=== PATIENT | male | born 1990 | race Caucasian/White ===

== ENCOUNTER 2023-07-26 14:24 | Outpatient (OUT) | payer BC, SELFPAY ==
--- NOTE | 2023-07-26 15:01 | ECG_ITS ---
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
== END 2023-07-26 14:25 | disposition home or self-care (01) ==
LOC: PST 14:25
PROVIDERS: PCP Family Medicine; Visit Provider Surgery
DX: Z01.810 Encounter for preprocedural cardiovascular examination (principal); R59.1 Generalized enlarged lymph nodes
CPT/HCPCS: 93005

== ENCOUNTER 2023-08-01 07:10 | Day surgery (SDC) | payer BC, SELFPAY ==
[2023-07-26 15:04] VITALS: BP 140/82; PULSE 85; TEMP 36.3; O2SAT 98; BMI 33.1
[2023-08-01] VITALS (10 sets, daily range): BP systolic 98–146; BP diastolic 64–98; PULSE 71–85; TEMP 36.2–36.6; O2SAT 91–97; BMI 33.1
--- OUTSIDE RECORDS SUMMARY | 2023-08-01 07:13 | XMS_ITS | CCD ---
Author Organization [facility] Care Team Providers Care Digital Photographic Printer Name Role Phone WIL VAZQUEZ Admitting Unavailable WIL VAZQUEZ Attending Unavailable WIL VAZQUEZ Consulting Unavailable WIL VAZQUEZ Attending Unavailable WIL VAZQUEZ Consulting Unavailable WIL VAZQUEZ Admitting Unavailable MISC, DR VALERA Attending Unavailable MISC, DR VALERA Consulting Unavailable MISC, DR VALERA Admitting Unavailable Swapna Stephens Unavailable CUTLER SÁNCHEZ L Attending Unavailable CUTLER, SÁNCHEZ L Attending Unavailable CUTLER, SÁNCHEZ L Referring Unavailable CUTLER, SÁNCHEZ L Attending Unavailable CUTLER, SÁNCHEZ L Referring Unavailable CUTLER, SÁNCHEZ L Referring Unavailable CUTLER, SÁNCHEZ L Referring Unavailable BENNY DICKENS Attending Unavailable CUTLER, SÁNCHEZ L Referring Unavailable [place], DO Sánchez L Primary Care Provider [phone] MD Tatyana Waters Attending Provider Tatyana Waters Attending Unavailabl e Tatyana Waters Admitting Unavailabl e [place], Sánchez L Primary Care Unavailable Medications Current Medications Medication Drug Class(es) Dates Sig (Normalized) Sig (Original) acetaminophen 325 mg oral capsule (1 source) Start: 07-26-19 24 take 1 capsule by mouth every six hours Acetaminophen (Tylenol) 325 mg capsule Active 325 MG PO Every 6 hours July 26, 2023 12:00am Citalopram (1 source) Serotonin Reuptake Inhibitor Citalopram Hydrobromide Active doxycycline monohydrate 100 mg oral tablet (1 source) Tetracycline-class Drug Start: 02-15-20 22 take 1 tablet by mouth every twelve hours Doxycycline Monohydrate 100 MG 1 tablet Orally Twice a day for 7 days Jan, Active methylPREDNISolone 4 mg oral tablet (1 source) Corticosteroid Start: 02-15-20 methylPREDNISolone 4 MG as directed Orally Once a day for 6 days Jan, Active Naproxen (1 source) Nonsteroidal Anti-inflammatory Drug Naproxen Active Omeprazole (1 source) Proton Pump Inhibitor Omeprazole Active Phentermine (1 source) Sympathomimetic Amine Anorectic Adipex-P Active Problems Active Problems Problem Classification Problem Date Documented Da te Episodic/Chronic Headache; including migraine (2 sources) Bilateral headache; Translations: [Bilateral headache] 07-26-2023 Episodic Lymphadenitis (3 sources) Generalized enlarged lymph nodes; Translations: [Generalized enlarged lymph nodes] Onset: 07-26-2023 07-26-2023 Episodic Other gastrointestinal disorders (1 source) Splenomegaly; Translations: [Splenomegaly, not elsewhere classified] 07-26-2023 Episodic Other gastrointestinal disorders (1 source) Splenomegaly, not elsewhere classified; Translations: [Splenomegaly] 07-26-2023 Episodic Other liver diseases (2 sources) Fatty (change of) liver, not elsewhere classified; Translations: [Nonalcoholic fatty liver disease] 07-26-2023 Chronic Other nutritional; endocrine; and metabolic disorders (1 source) Abnormal weight loss; Translations: [Abnormal weight loss] 07-26-2023 Episodic Other nutritional; endocrine; and metabolic disorders (1 source) Abnormal weight loss; Translations: [Loss of weight] 07-26-2023 Episodic Other skin disorders (1 source) Night sweats; Translations: [Generalized hyperhidrosis] 07-26-2023 Episodic Other skin disorders (1 source) Generalized hyperhidrosis; Translations: [Generalized hyperhidrosis] 07-26-2023 Episodic Poisoning by nonmedicinal substances (1 source) Toxic effect of venom of bees, undetermined, initial encounter Episodic Unclassified (3 sources) CONTACT W/AND (SUSP) EXPOS COVID-19; Translations: [CONTACT W/AND (SUSP) EXPOS COVID-19] Onset: 01-11-2021 Past or Other Problems Problem Classification Problem Date Documented Da te Episodic/Chronic Immunizations and screening for infectious disease (4 sources) Encounter for immunization; Translations: [ENCOUNTER FOR IMMUNIZATION] Onset: 07-30-2020 Episodic Unclassified (1 source) CONTACT W/AND (SUSP) EXPOS COVID-19; Translations: [CONTACT W/AND (SUSP) EXPOS COVID-19] Onset: 01-05-2021 Results Test Name Value Interpretation Reference Range Facility MARY Antinuclear Antibodieson 07-26-2023 Antinuclear Abs, IFA Negative Normal . [facility] Comment on above: Result Comment: Nega tive <1:80 Borderline 1:80 Positive >1:80 ICAP nomenclature: [id number] For more information about Hep-2 cell patterns use ANApatterns.org, the official website for the International Consensus on Antinuclear Antibody (MARY) Patterns (ICAP). Performed at: - [facility] [id number] Director Employee Safety And Health: Caesar Chery PhD, Phone: [phone] Performed By: #### I GM, IGG, HIV SCREEN, HBCAB, RPR W RFX, HEPACUTE, RA, ROYAL, LYME AB wRFX, HBSAB, MARY #### [facility] , #### FLOW NEOGENOMIC, HSCRP, FISH NOT BLAD, ESR, CMP, CBC #### [facility] [address] Angiotensin Converting Enzym ange 07-26-2023 Angiotensin converting enzyme [Catalytic activity/Vol] 37 U/L Normal 14-82 [facility] Comment on above: Performed By: #### I GM, IGG, HIV SCREEN, HBCAB, RPR W RFX, HEPACUTE, RA, ROYAL, LYME AB wRFX, HBSAB, MARY #### [facility] , #### FLOW NEOGENOMIC, HSCRP, FISH NOT BLAD, ESR, CMP, CBC #### [facility] [address] Complete Blood Count Auto Di ffon 07-26-2023 Basophils (Bld) [#/Vol] 0.1 10*3/uL Normal 0.0-0.2 [facility] Comment on above: Performed By: #### I GM, IGG, HIV SCREEN, HBCAB, RPR W RFX, HEPACUTE, RA, ROYAL, LYME AB wRFX, HBSAB, MARY #### [facility] , #### FLOW NEOGENOMIC, HSCRP, FISH NOT BLAD, ESR, CMP, CBC #### [facility] [address] Basophils/100 WBC (Bld) 0.8 % Normal . [facility] Comment on above: Performed By: #### I GM, IGG, HIV SCREEN, HBCAB, RPR W RFX, HEPACUTE, RA, ROYAL, LYME AB wRFX, HBSAB, MARY #### [facility] , #### FLOW NEOGENOMIC, HSCRP, FISH NOT BLAD, ESR, CMP, CBC #### [facility] [address] Eosinophils (Bld) [#/Vol] 0.2 10*3/uL Normal 0.0-0.45 [facility] Comment on above: Performed By: #### I GM, IGG, HIV SCREEN, HBCAB, RPR W RFX, HEPACUTE, RA, ROYAL, LYME AB wRFX, HBSAB, MARY #### [facility] , #### FLOW NEOGENOMIC, HSCRP, FISH NOT BLAD, ESR, CMP, CBC #### [address] Eosinophils/100 WBC (Bld) 3.2 % Normal . [facility] Comment on above: Performed By: #### I GM, IGG, HIV SCREEN, HBCAB, RPR W RFX, HEPACUTE, RA, ROYAL, LYME AB wRFX, HBSAB, MARY #### [facility] , #### FLOW NEOGENOMIC, HSCRP, FISH NOT BLAD, ESR, CMP, CBC #### [facility] [address] Erythrocyte distribution width (RBC) [Ratio] 14.2 % Normal 12.0-14.8 [facility] Comment on above: Performed By: #### I GM, IGG, HIV SCREEN, HBCAB, RPR W RFX, HEPACUTE, RA, ROYAL, LYME AB wRFX, HBSAB, MARY #### [facility] , #### FLOW NEOGENOMIC, HSCRP, FISH NOT BLAD, ESR, CMP, CBC #### [facility] [address] Hematocrit (Bld) [Volume fraction] 44.1 % Normal 38.8-50.0 [facility] Comment on above: Performed By: #### I GM, IGG, HIV SCREEN, HBCAB, RPR W RFX, HEPACUTE, RA, ROYLA, LYME AB wRFX, HBSAB, MARY #### [facility] , #### FLOW NEOGENOMIC, HSCRP, FISH NOT BLAD, ESR, CMP, CBC #### [address] Hemoglobin (Bld) [Mass/Vol] 15.0 g/dL Normal 13.0-17.0 [facility] Comment on above: Performed By: #### I GM, IGG, HIV SCREEN, HBCAB, RPR W RFX, HEPACUTE, RA, ROYAL, LYME AB wRFX, HBSAB, MARY #### [facility] , #### FLOW NEOGENOMIC, HSCRP, FISH NOT BLAD, ESR, CMP, CBC #### [address] Lymphocytes (Bld) [#/Vol] 1.7 10*3/uL Normal 1.00-4.8 [facility] Comment on above: Performed By: #### I GM, IGG, HIV SCREEN, HBCAB, RPR W RFX, HEPACUTE, RA, ROYAL, LYME AB wRFX, HBSAB, MARY #### [facility] , #### FLOW NEOGENOMIC, HSCRP, FISH NOT BLAD, ESR, CMP, CBC #### [address] Lymphocytes/100 WBC (Bld) 27.4 % Normal . [facility] Comment on above: Performed By: #### I GM, IGG, HIV SCREEN, HBCAB, RPR W RFX, HEPACUTE, RA, ROYAL, LYME AB wRFX, HBSAB, MARY #### [facility] , #### FLOW NEOGENOMIC, HSCRP, FISH NOT BLAD, ESR, CMP, CBC #### [facility] [address] MCH (RBC) [Entitic mass] 29.5 pg Normal 27.5-35.2 [facility] Comment on above: Performed By: #### I GM, IGG, HIV SCREEN, HBCAB, RPR W RFX, HEPACUTE, RA, ROYAL, LYME AB wRFX, HBSAB, MARY #### [facility] , #### FLOW NEOGENOMIC, HSCRP, FISH NOT BLAD, ESR, CMP, CBC #### [facility] [address] MCV (RBC) [Entitic vol] 86.9 fL Normal 83.5-101 [facility] Comment on above: Performed By: #### I GM, IGG, HIV SCREEN, HBCAB, RPR W RFX, HEPACUTE, RA, ROYAL, LYME AB wRFX, HBSAB, MARY #### [facility] , #### FLOW NEOGENOMIC, HSCRP, FISH NOT BLAD, ESR, CMP, CBC #### [facility] [address] Mean Corpuscular HGB Conc 34.0 g/dL Normal 32.5-35.6 [facility] Comment on above: Performed By: #### I GM, IGG, HIV SCREEN, HBCAB, RPR W RFX, HEPACUTE, RA, ROYAL, LYME AB wRFX, HBSAB, MARY #### [facility] , #### FLOW NEOGENOMIC, HSCRP, FISH NOT BLAD, ESR, CMP, CBC #### [facility] [address] Monocytes (Bld) [#/Vol] 0.7 10*3/uL Normal 0.0-0.8 [facility] Comment on above: Performed By: #### I GM, IGG, HIV SCREEN, HBCAB, RPR W RFX, HEPACUTE, RA, ROYAL, LYME AB wRFX, HBSAB, MARY #### [facility] , #### FLOW NEOGENOMIC, HSCRP, FISH NOT BLAD, ESR, CMP, CBC #### [facility] [address] Monocytes/100 WBC (Bld) 10.8 % Normal . [facility] Comment on above: Performed By: #### I GM, IGG, HIV SCREEN, HBCAB, RPR W RFX, HEPACUTE, RA, ROYAL, LYME AB wRFX, HBSAB, MARY #### [facility] , #### FLOW NEOGENOMIC, HSCRP, FISH NOT BLAD, ESR, CMP, CBC #### [address] Neutrophils (Bld) [#/Vol] 3.7 10*3/uL Normal 1.8-7.7 [facility] Comment on above: Performed By: #### I GM, IGG, HIV SCREEN, HBCAB, RPR W RFX, HEPACUTE, RA, ROYAL, LYME AB wRFX, HBSAB, MARY #### [facility] , #### FLOW NEOGENOMIC, HSCRP, FISH NOT BLAD, ESR, CMP, CBC #### [place] [address] [place] Neutrophils/100 WBC (Bld) 57.8 % Normal . [facility] Comment on above: Performed By: #### I GM, IGG, HIV SCREEN, HBCAB, RPR W RFX, HEPACUTE, RA, ROYAL, LYME AB wRFX, HBSAB, MARY #### [facility] , #### FLOW NEOGENOMIC, HSCRP, FISH NOT BLAD, ESR, CMP, CBC #### [place] [address] [place] NRBC% 0.3 /100{WBC} Normal 0-0.5 [facility] Comment on above: Performed By: #### I GM, IGG, HIV SCREEN, HBCAB, RPR W RFX, HEPACUTE, RA, ROYAL, LYME AB wRFX, HBSAB, MARY #### [facility] , #### FLOW NEOGENOMIC, HSCRP, FISH NOT BLAD, ESR, CMP, CBC #### [facility] [address] Platelet mean volume (Bld) [Entitic vol] 8.0 fL Normal 6.6-10.1 [facility] Comment on above: Performed By: #### I GM, IGG, HIV SCREEN, HBCAB, RPR W RFX, HEPACUTE, RA, ROYAL, LYME AB wRFX, HBSAB, MARY #### [facility] , #### FLOW NEOGENOMIC, HSCRP, FISH NOT BLAD, ESR, CMP, CBC #### [address] Platelets (Bld) [#/Vol] 209 10*3/uL Normal 150-450 [facility] Comment on above: Performed By: #### I GM, IGG, HIV SCREEN, HBCAB, RPR W RFX, HEPACUTE, RA, ROYAL, LYME AB wRFX, HBSAB, MARY #### [facility] , #### FLOW NEOGENOMIC, HSCRP, FISH NOT BLAD, ESR, CMP, CBC #### [address] RBC (Bld) [#/Vol] 5.08 10*6/uL Normal 3.90-5.60 [facility] Comment on above: Performed By: #### I GM, IGG, HIV SCREEN, HBCAB, RPR W RFX, HEPACUTE, RA, ROYAL, LYME AB wRFX, HBSAB, MARY #### [facility] , #### FLOW NEOGENOMIC, HSCRP, FISH NOT BLAD, ESR, CMP, CBC #### [address] WBC (Bld) [#/Vol] 6.4 10*3/uL Normal 4.1-10.5 [facility] Comment on above: Performed By: #### I GM, IGG, HIV SCREEN, HBCAB, RPR W RFX, HEPACUTE, RA, ROYAL, LYME AB wRFX, HBSAB, MARY #### [facility] , #### FLOW NEOGENOMIC, HSCRP, FISH NOT BLAD, ESR, CMP, CBC #### [address] Comprehensive Metabolic Pane phill 07-26-2023 Albumin [Mass/Vol] 4.4 g/dL Normal 3.5-5.7 [facility] Comment on above: Performed By: #### I GM, IGG, HIV SCREEN, HBCAB, RPR W RFX, HEPACUTE, RA, ROYAL, LYME AB wRFX, HBSAB, MARY #### [facility] , #### FLOW NEOGENOMIC, HSCRP, FISH NOT BLAD, ESR, CMP, CBC #### [address] Albumin/Globulin [Mass ratio] 1.7 {ratio} Normal [facility] Comment on above: Performed By: #### I GM, IGG, HIV SCREEN, HBCAB, RPR W RFX, HEPACUTE, RA, ROYAL, LYME AB wRFX, HBSAB, MARY #### [facility] , #### FLOW NEOGENOMIC, HSCRP, FISH NOT BLAD, ESR, CMP, CBC #### [address] ALP [Catalytic activity/Vol] 61 U/L Normal 34-104 [facility] Comment on above: Performed By: #### I GM, IGG, HIV SCREEN, HBCAB, RPR W RFX, HEPACUTE, RA, ROYAL, LYME AB wRFX, HBSAB, MARY #### [facility] , #### FLOW NEOGENOMIC, HSCRP, FISH NOT BLAD, ESR, CMP, CBC #### [address] ALT [Catalytic activity/Vol] 19 U/L Normal 7-52 [facility] Comment on above: Performed By: #### I GM, IGG, HIV SCREEN, HBCAB, RPR W RFX, HEPACUTE, RA, ROYAL, LYME AB wRFX, HBSAB, MARY #### [facility] , #### FLOW NEOGENOMIC, HSCRP, FISH NOT BLAD, ESR, CMP, CBC #### [address] Anion gap [Moles/Vol] 10.9 mmol/L Normal 6.0-15.0 [facility] Comment on above: Performed By: #### I GM, IGG, HIV SCREEN, HBCAB, RPR W RFX, HEPACUTE, RA, ROYAL, LYME AB wRFX, HBSAB, MARY #### [facility] , #### FLOW NEOGENOMIC, HSCRP, FISH NOT BLAD, ESR, CMP, CBC #### [address] AST [Catalytic activity/Vol] 15 U/L Normal 13-39 [facility] Comment on above: Performed By: #### I GM, IGG, HIV SCREEN, HBCAB, RPR W RFX, HEPACUTE, RA, ROYAL, LYME AB wRFX, HBSAB, MARY #### [facility] , #### FLOW NEOGENOMIC, HSCRP, FISH NOT BLAD, ESR, CMP, CBC #### [address] Bilirubin [Mass/Vol] 0.4 mg/dL Normal 0.3-1.0 [facility] Comment on above: Performed By: #### I GM, IGG, HIV SCREEN, HBCAB, RPR W RFX, HEPACUTE, RA, ROYAL, LYME AB wRFX, HBSAB, MARY #### [facility] , #### FLOW NEOGENOMIC, HSCRP, FISH NOT BLAD, ESR, CMP, CBC #### [address] Calcium [Mass/Vol] 9.3 mg/dL Normal 8.6-10.3 [facility] Comment on above: Performed By: #### I GM, IGG, HIV SCREEN, HBCAB, RPR W RFX, HEPACUTE, RA, ROYAL, LYME AB wRFX, HBSAB, MARY #### [facility] , #### FLOW NEOGENOMIC, HSCRP, FISH NOT BLAD, ESR, CMP, CBC #### [facility] [address] Chloride [Moles/Vol] 103 mmol/L Normal 98-107 [facility] Comment on above: Performed By: #### I GM, IGG, HIV SCREEN, HBCAB, RPR W RFX, HEPACUTE, RA, ROYAL, LYME AB wRFX, HBSAB, MARY #### [facility] , #### FLOW NEOGENOMIC, HSCRP, FISH NOT BLAD, ESR, CMP, CBC #### [address] CO2 [Moles/Vol] 29.3 mmol/L Normal 21.0-31.0 [facility] Comment on above: Performed By: #### I GM, IGG, HIV SCREEN, HBCAB, RPR W RFX, HEPACUTE, RA, ROYAL, LYME AB wRFX, HBSAB, MARY #### [facility] , #### FLOW NEOGENOMIC, HSCRP, FISH NOT BLAD, ESR, CMP, CBC #### [address] Creatinine [Mass/Vol] 0.83 mg/dL Normal 0.70-1.30 [facility] Comment on above: Performed By: #### I GM, IGG, HIV SCREEN, HBCAB, RPR W RFX, HEPACUTE, RA, ROYAL, LYME AB wRFX, HBSAB, MARY #### [facility] , #### FLOW NEOGENOMIC, HSCRP, FISH NOT BLAD, ESR, CMP, CBC #### [address] Creatinine Clr Calc Pharmacy 155.77 Normal [facility] Comment on above: Result Comment: PERF ORMED BY: [place] [address] PATHOLOGIST DIRECTOR CORRECTIONAL AGENCY PACO DENISE M.D. Performed By: #### I GM, IGG, HIV SCREEN, HBCAB, RPR W RFX, HEPACUTE, RA, ROYAL, LYME AB wRFX, HBSAB, MARY #### [facility] , #### FLOW NEOGENOMIC, HSCRP, FISH NOT BLAD, ESR, CMP, CBC #### [address] GFR/1.73 sq M.predicted MDRD (S/P/Bld) [Vol rate/Area] mL/min/{1.73_m2} Normal [facility] Comment on above: Performed By: #### I GM, IGG, HIV SCREEN, HBCAB, RPR W RFX, HEPACUTE, RA, ROYAL, LYME AB wRFX, HBSAB, MARY #### [facility] , #### FLOW NEOGENOMIC, HSCRP, FISH NOT BLAD, ESR, CMP, CBC #### [address] Globulin (S) [Mass/Vol] 2.6 g/dL Normal [facility] Comment on above: Performed By: #### I GM, IGG, HIV SCREEN, HBCAB, RPR W RFX, HEPACUTE, RA, ROYAL, LYME AB wRFX, HBSAB, MARY #### [facility] , #### FLOW NEOGENOMIC, HSCRP, FISH NOT BLAD, ESR, CMP, CBC #### [address] Glucose [Mass/Vol] 88 mg/dL Normal 70-100 [facility] Comment on above: Result Comment: [facility] Glucose Reference Range is dependent on time and content of last meal. Glucose of more than 200 mg/dL in a nonstressed, ambulatory subject supports the diagnosis of Diabetes Mellitus. ADA recommended reference range Performed By: #### I GM, IGG, HIV SCREEN, HBCAB, RPR W RFX, HEPACUTE, RA, ROYAL, LYME AB wRFX, HBSAB, MARY #### [facility] , #### FLOW NEOGENOMIC, HSCRP, FISH NOT BLAD, ESR, CMP, CBC #### [facility] [address] Potassium [Moles/Vol] 4.2 mmol/L Normal 3.5-5.1 [facility] Comment on above: Performed By: #### I GM, IGG, HIV SCREEN, HBCAB, RPR W RFX, HEPACUTE, RA, ROYAL, LYME AB wRFX, HBSAB, MARY #### [facility] , #### FLOW NEOGENOMIC, HSCRP, FISH NOT BLAD, ESR, CMP, CBC #### [facility] [address] Protein [Mass/Vol] 7.0 g/dL Normal 6.4-8.9 [facility] Comment on above: Performed By: #### I GM, IGG, HIV SCREEN, HBCAB, RPR W RFX, HEPACUTE, RA, ROYAL, LYME AB wRFX, HBSAB, MARY #### [facility] , #### FLOW NEOGENOMIC, HSCRP, FISH NOT BLAD, ESR, CMP, CBC #### [facility] [address] Sodium [Moles/Vol] 139 mmol/L Normal 136-145 [facility] Comment on above: Performed By: #### I GM, IGG, HIV SCREEN, HBCAB, RPR W RFX, HEPACUTE, RA, ROYAL, LYME AB wRFX, HBSAB, MARY #### [facility] , #### FLOW NEOGENOMIC, HSCRP, FISH NOT BLAD, ESR, CMP, CBC #### [facility] [address] Urea nitrogen [Mass/Vol] 15 mg/dL Normal 7-25 [facility] Comment on above: Performed By: #### I GM, IGG, HIV SCREEN, HBCAB, RPR W RFX, HEPACUTE, RA, ROYAL, LYME AB wRFX, HBSAB, MARY #### [facility] , #### FLOW NEOGENOMIC, HSCRP, FISH NOT BLAD, ESR, CMP, CBC #### [address] Erythrocyte Sedimentation Ra norbert 07-26-2023 ESR (Bld) [Velocity] 22 mm/h High 0-14 [facility] Comment on above: Result Comment: PERF ORMED BY: [place] [address] PATHOLOGIST DIRECTOR CORRECTIONAL AGENCY PACO DENISE M.D. Performed By: #### I GM, IGG, HIV SCREEN, HBCAB, RPR W RFX, HEPACUTE, RA, ROYAL, LYME AB wRFX, HBSAB, MARY #### [facility] , #### FLOW NEOGENOMIC, HSCRP, FISH NOT BLAD, ESR, CMP, CBC #### [address] Fish Not Bladder Neogenomico n 07-26-2023 Fish Not Bladder Neogenomic Normal [facility] Comment on above: Result Comment: See report. Scanned copy available in EMR. PERFORMED BY: [place] [address] PATHOLOGIST DIRECTOR CORRECTIONAL AGENCY PACO DENISE M.D. Performed By: #### I GM, IGG, HIV SCREEN, HBCAB, RPR W RFX, HEPACUTE, RA, ROYAL, LYME AB wRFX, HBSAB, MARY #### [facility] , #### FLOW NEOGENOMIC, HSCRP, FISH NOT BLAD, ESR, CMP, CBC #### [address] Flowcytometry Neogenomicon 0 07-26-2023 Flowcytometry Neogenomic Normal [facility] Comment on above: Result Comment: See report. Scanned copy available in EMR. Performed By: #### I GM, IGG, HIV SCREEN, HBCAB, RPR W RFX, HEPACUTE, RA, ROYAL, LYME AB wRFX, HBSAB, MARY #### [facility] , #### FLOW NEOGENOMIC, HSCRP, FISH NOT BLAD, ESR, CMP, CBC #### [address] HIV 1/O/2 Antigen/Antibodyon 07-26-2023 HIV Screen 4th Generation Non-Reactive Normal Non Reactive [facility] Comment on above: Result Comment: HIV Negative HIV-1/HIV-2 antibodies and HIV-1 p24 antigen were NOT detected. There is no laboratory evidence of HIV infection. Performed at: - [facility] [id number] Director Employee Safety And Health: Caesar Chery PhD, Phone: [phone] Performed By: #### I GM, IGG, HIV SCREEN, HBCAB, RPR W RFX, HEPACUTE, RA, ROYAL, LYME AB wRFX, HBSAB, MARY #### [facility] , #### FLOW NEOGENOMIC, HSCRP, FISH NOT BLAD, ESR, CMP, CBC #### [address] Hepatitis Acute Panelon HBsAg Screen Negative Normal Negative [facility] Comment on above: Performed By: #### I GM, IGG, HIV SCREEN, HBCAB, RPR W RFX, HEPACUTE, RA, ROYAL, LYME AB wRFX, HBSAB, MARY #### [facility] , #### FLOW NEOGENOMIC, HSCRP, FISH NOT BLAD, ESR, CMP, CBC #### [address] Hepatitis A Antibody IgM Negative Normal Negative [facility] Comment on above: Performed By: #### I GM, IGG, HIV SCREEN, HBCAB, RPR W RFX, HEPACUTE, RA, ROYAL, LYME AB wRFX, HBSAB, MARY #### [facility] , #### FLOW NEOGENOMIC, HSCRP, FISH NOT BLAD, ESR, CMP, CBC #### [address] Hepatitis B Core Antibody IgM Negative Normal Negative [facility] Comment on above: Performed By: #### I GM, IGG, HIV SCREEN, HBCAB, RPR W RFX, HEPACUTE, RA, ROYAL, LYME AB wRFX, HBSAB, MARY #### [facility] , #### FLOW NEOGENOMIC, HSCRP, FISH NOT BLAD, ESR, CMP, CBC #### [address] Hepatitis C Virus Antibody Non-Reactive Normal Non Reactive [facility] Comment on above: Performed By: #### I GM, IGG, HIV SCREEN, HBCAB, RPR W RFX, HEPACUTE, RA, ROYAL, LYME AB wRFX, HBSAB, MARY #### [facility] , #### FLOW NEOGENOMIC, HSCRP, FISH NOT BLAD, ESR, CMP, CBC #### [address] Interpretation Hepatitis C Normal . [facility] Comment on above: Result Comment: Not infected with HCV unless early or acute infection is suspected (which may be delayed in an immunocompromised individual), or other evidence exists to indicate HCV infection. Performed By: #### I GM, IGG, HIV SCREEN, HBCAB, RPR W RFX, HEPACUTE, RA, ROYAL, LYME AB wRFX, HBSAB, MARY #### [facility] , #### FLOW NEOGENOMIC, HSCRP, FISH NOT BLAD, ESR, CMP, CBC #### [address] Hepatitis B Core Antibodyon 07-26-2023 Hepatitis B Core Antibody Negative Normal Negative [facility] Comment on above: Result Comment: Perf ormed at: - [facility] [address] [id number] Director Employee Safety And Health: Caesar Chery PhD, Phone: [phone] PERFORMED BY: [place] [address] PATHOLOGIST DIRECTOR CORRECTIONAL AGENCY PACO DENISE M.D. Performed By: #### I GM, IGG, HIV SCREEN, HBCAB, RPR W RFX, HEPACUTE, RA, ROYAL, LYME AB wRFX, HBSAB, MARY #### [facility] , #### FLOW NEOGENOMIC, HSCRP, FISH NOT BLAD, ESR, CMP, CBC #### [address] Hepatitis B Surface Antibody on 07-26-2023 Hepatitis B Surface Antibody Non-Reactive Normal . [facility] Comment on above: Result Comment: Non Reactive: Inconsistent with immunity, less than 10 mIU/mL Reactive: Consistent with immunity, greater than 9.9 mIU/mL Performed By: #### I GM, IGG, HIV SCREEN, HBCAB, RPR W RFX, HEPACUTE, RA, ROYAL, LYME AB wRFX, HBSAB, MARY #### [facility] , #### FLOW NEOGENOMIC, HSCRP, FISH NOT BLAD, ESR, CMP, CBC #### [address] High Sensitive CRPon 024 High Sensitive CRP 12.7 mg/L High 0.0-0.9 The [facility] Comment on above: Result Comment: Card iovascular Risk Classification (AHA/CDC) hsCRP < 1.0 mg/l low relative risk for CVD hsCRP 1.0-3.0 mg/l average relative risk for CVD hsCRP > 3.0 mg/l high relative risk for CVD hsCRP > 7.5 mg/l active inflammation* Two results two weeks apart and averaged provide a more stable estimate of hsCRP level. *hsCRP levels > 7.5 mg/l may suggest infection that can limit the use of this marker for estimation of CVD risk. PERFORMED BY: [place] [address] PATHOLOGIST DIRECTOR CORRECTIONAL AGENCY PACO DENISE M.D. Performed By: #### I GM, IGG, HIV SCREEN, HBCAB, RPR W RFX, HEPACUTE, RA, ROYAL, LYME AB wRFX, HBSAB, MARY #### [facility] , #### FLOW NEOGENOMIC, HSCRP, FISH NOT BLAD, ESR, CMP, CBC #### [address] Immunoglobulin Oscar Immunoglobulin G 1150 mg/dL Normal [id number] The [facility] Comment on above: Performed By: #### I GM, IGG, HIV SCREEN, HBCAB, RPR W RFX, HEPACUTE, RA, ROYAL, LYME AB wRFX, HBSAB, MARY #### [facility] , #### FLOW NEOGENOMIC, HSCRP, FISH NOT BLAD, ESR, CMP, CBC #### [facility] [address] [id number] [facility] Immunoglobulin M, Serumon Immunoglobulin M, Serum 57 mg/dL Normal 20-172 The [facility] Comment on above: Result Comment: Perf ormed at: [facility] [id number] Director Employee Safety And Health: Caesar Chery PhD, Phone: [phone] Performed By: #### I GM, IGG, HIV SCREEN, HBCAB, RPR W RFX, HEPACUTE, RA, ROYAL, LYME AB wRFX, HBSAB, MARY #### [facility] , #### FLOW NEOGENOMIC, HSCRP, FISH NOT BLAD, ESR, CMP, CBC #### [facility] [address] Lyme, Total Ab with Reflexon 07-26-2023 Lyme Total Antibody Negative Normal Negative The [facility] Comment on above: Result Comment: Lyme antibodies not detected. Reflex testing is not indicated. No laboratory evidence of infection with B. burgdorferi (Lyme disease). Negative results may occur in patients recently infected (less than or equal to 14 days) with B. burgdorferi. If recent infection is suspected, repeat testing on a new sample collected in 7 to 14 days is recommended. Performed at: [facility] [id number] Director Employee Safety And Health: Caesar Chery PhD, Phone: [phone] Performed By: #### I GM, IGG, HIV SCREEN, HBCAB, RPR W RFX, HEPACUTE, RA, ROYAL, LYME AB wRFX, HBSAB, MARY #### [facility] , #### FLOW NEOGENOMIC, HSCRP, FISH NOT BLAD, ESR, CMP, CBC #### [facility] [address] RPR w/rfx to Quant TP Abson 07-26-2023 RPR, Rfx Quant RPR Non-Reactive Normal Non Reactive Th e [facility] Comment on above: Result Comment: PERF ORMED BY: [place] [address] PATHOLOGIST DIRECTOR CORRECTIONAL AGENCY PACO DENISE M.D. Performed By: #### I GM, IGG, HIV SCREEN, HBCAB, RPR W RFX, HEPACUTE, RA, ROYAL, LYME AB wRFX, HBSAB, MARY #### [facility] , #### FLOW NEOGENOMIC, HSCRP, FISH NOT BLAD, ESR, CMP, CBC #### [facility] [address] Rheumatoid Factoron 07-26-19 Rheumatoid Factor <10.0 Normal <14.0 The [facility] Comment on above: Performed By: #### I GM, IGG, HIV SCREEN, HBCAB, RPR W RFX, HEPACUTE, RA, ROYAL, LYME AB wRFX, HBSAB, MARY #### [facility] , #### FLOW NEOGENOMIC, HSCRP, FISH NOT BLAD, ESR, CMP, CBC #### [address] US LOWER EXTREMITY NON-VASC RIGHTon 06-28-2023 US LOWER EXTREMITY NON-VASC RIGHT EXAMINATION: Ultrasound lower extremity, nonvascular right HISTORY: Lump right groin COMPARISON: None TECHNIQUE: Grayscale as well as duplex color Doppler ultrasound and a limited study of the left inguinal region was performed. FINDINGS: Within the right inguinal region are findings of lymphadenopathy. The largest lymph node measures 4.0 x 2.7 x 1.7 cm. IMPRESSION: RIGHT INGUINAL ADENOPATHY. ELECTRONICALLY SIGNED BY: Matteo Sethi MD Normal Not Available Covid-19 PCR (CVDTBH)on 12-18 SARS-CoV-2 (COVID-19) RNA TAWNYA+probe Ql (Unsp spec) Not detected Normal NOT DETECTED The [facility] Comment on above: Result Comment: This test is not yet approved or cleared by the [place] FDA. When there are no FDA-approved or cleared tests available, and other criteria are met, FDA can make tests available under an emergency access mechanism called an Emergency Use Authorization (EUA). The EUA for this test is supported by the [employer] Application Developer of Health and Human Service's (HHS's) declaration that circumstances exist to justify the emergency use of in vitro diagnostics for the detection and/or diagnosis of the virus that causes COVID-19. This EUA will remain in effect (meaning this test can be used) for the duration of the COVID-19 declaration justifying emergency of IVDs, unless it is terminated or revoked by FDA (after which the test may no longer be used). When diagnostic testing is negative, the possibility of a false negative should be considered in the context of a patient's recent exposures and the presence of clinical signs and symptoms consistent with SARS-CoV-2. Performed By: #### [facility] #### [facility] [address] [place] [address] Dr. Kaci Case Vital Signs Date Time Vital Sign Value Performing Clinician Facility 07-26-2023 08:55-0400 Body height 180.34 cm DO Sánchez Dayton Work Phone: [facility] 07-26-2023 08:55-0400 Body mass index (BMI) [Ratio] 32.8 kg/m2 DO Sánchez Dayton Work Phone: [facility] 07-26-2023 08:55-0400 Body temperature 97.9 [degF] DO Sánchez Dayton Work Phone: [facility] 07-26-2023 08:55-0400 Body weight 106.59 kg DO Sánchez Dayton Work Phone: [facility] 07-26-2023 08:55-0400 Diastolic blood pressure 92 mm[Hg] DO Sánchez Dayton Work Phone: [facility] 07-26-2023 08:55-0400 Heart rate 72 /min DO Sánchez Dayton Work Phone: [facility] 07-26-2023 08:55-0400 Respiratory rate 20 /min DO Sánchez Dayton Work Phone: [facility] 07-26-2023 08:55-0400 SaO2% (BldA) [Mass fraction] 98 % DO Sánchez Dayton Work Phone: [facility] 07-26-2023 08:55-0400 Systolic blood pressure 142 mm[Hg] DO Sánchez Dayton Work Phone: [facility] 02-14-2022 10:35-0500 Body height 180.34 cm Swapna Stephens Other [employer] Other 02-14-2022 10:35-0500 Body mass index (BMI) [Ratio] 35.56 kg/m2 Swapna Stephens Other [employer] Other 02-14-2022 10:35-0500 Body temperature 97 [degF] Swapna Stephens Other [employer] Other 02-14-2022 10:35-0500 Body weight 115.67 kg Swapna Angelo Other [employer] Other 02-14-2022 10:35-0500 Diastolic blood pressure 88 mm[Hg] Swapna Stephens Other [employer] Other 02-14-2022 10:35-0500 Respiratory rate 18 /min Swapna Stephens Other [employer] Other 02-14-2022 10:35-0500 SaO2% (BldA) [Mass fraction] 96 % Swapna Stephens Other [employer] Other 02-14-2022 10:35-0500 Systolic blood pressure 134 mm[Hg] Swapna Stephens Other [employer] Other Encounters Encounter Date Encounter Type Care Provider Facility Start: 07-26-2023 ambulatory Mhd Maxi NicholMaegandelfino Fa cility:[facility] Start: 07-26-2023 End: 07-26-2023 ambulatory DO Sánchez L Dayton Work Phone: [facility] Work Phone: Start: 07-26-2023 End: 07-26-2023 Patient encounter procedure DO Sánchez Dayton Work Phone: [facility] Work Phone: Start: 07-26-2023 Registered Recurring DO Timoth y Dayton Work Phone: [facility] Work Phone: Start: 07-24-2023 End: 07-24-2023 ambulatory BENNY DICKENS Not Available Start: 07-20-2023 End: 07-21-2023 ambulatory SÁNCHEZ L CUTLER Not Available Start: 06-28-2023 End: 06-29-2023 ambulatory SÁNCHEZ L CUTLER Not Available Start: 05-09-2023 End: 05-09-2023 ambulatory SÁNCHEZ L CUTLER Not Available Start: 02-14-2023 End: 02-14-2023 ambulatory SÁNCHEZ L CUTLER Not Available Start: 02-14-2022 End: 02-14-2022 ambulatory Swapna Stephens Other [facility] [employer] Other Start: 02-14-2022 Office outpatient ne w 20 minutes Swapna Stephens [facility] Start: 01-05-2021 End: 01-05-[address] DOCTOR LYLES Facility:[facility]1 Start: 07-30-2020 End: 07-31-2020 ambulatory WIL VAZQUEZ Facility:[facility]1 Start: 07-09-2020 End: 07-10-2020 ambulatory WIL VAZQUEZ Facility:[facility]1 Plan of Treatment Date Care Activity Detail Author Angiotensin converti ng enzyme [Enzymatic activity/volume] in Serum or Plasma [facility] enter Comprehensive metabo lic 1999 panel - Serum or Plasma [facility] enter Hepatitis B core antibody measurement [facility] Hepatitis B virus blankenship rface Ab [Presence] in Serum [facility] enter IgG [Mass/volume] in Serum or Plasma [facility] IgM [Mass/volume] in Serum or Plasma [facility] MR Unspecified body region [facility] Rheumatoid factor [U nits/volume] in Serum or Plasma [facility] enter [facility] Payers Date Payer Category Payer Self-pay 1990 Unknown [id number] 2.16.84 [id number] 1988 Unknown [id number] 2.16.84 [id number] 1988 Unknown [id number] 2.16.84 [id number] 1988 Unknown [id number] 2.16.84 [id number] 1988 Unknown [id number] 2.16.84 [id number] 1988 Unknown [id number] 2.16.84 [id number] 1988 Unknown [id number] 2.16.84 [id number] 1988 Unknown [id number] 2.16.84 [id number] 1988 Unknown [id number] 2.16.84 [id number] 1988 Unknown [id number] 2.16.84 [id number] 1988 Unknown [id number] 2.16.840 .[id number] 1959 Unknown [id number] Unknown [id number] 2.16.8 [id number] Social History Date Type Detail Facility Sex Assigned At [facility] [employer] Other Start: 1990 Sex Assigned At Male F [facility] Clinical Note 07-20-2023 Note Date & Type Note Facility 07-20-2023 Note PROCEDURE: With IV contrast, axial 5 mm slice thickness helical images of the chest performed FINDINGS: No mediastinal, hilar, or axillary lymphadenopathy. Normal lung parenchyma. No pleural or pericardial effusion. IMPRESSION: No supradiaphragmatic lymphadenopathy. TRANSCRIBED BY: ELECTRONICALLY SIGNED BY: Bill Marcano MD Not Available Clinical Note 07-20-2023 Note Date & Type Note Facility 07-20-2023 Note PROCEDURE: Following IV contrast, axial helical images of the neck were performed. FINDINGS: Bilateral suprahyoid jugular chain lymph nodes, largest aggregates both jugulodigastric regions, 1 x 2 cm. No infrahyoid lymphadenopathy Normal pharyngeal mucosal space, relatively symmetrical, normal lymphoid tissue. No airway compromise. Normal larynx. No supraclavicular lymphadenopathy. Normal thyroid volume. Normal major salivary glands, intraorbital and intracranial contents IMPRESSION: Bilateral suprahyoid jugular chain lymph nodes, a nonspecific finding. Given the bilateral femoral lymph nodes, restaging with PET may be of assistance at this time. TRANSCRIBED BY: ELECTRONICALLY SIGNED BY: Bill Marcano MD Not Available Clinical Note 07-20-2023 Note Date & Type Note Facility 07-20-2023 Note PROCEDURE: Following oral contrast administration, post-intravenous contrast helical images, 5 mm slice thickness, were performed through the abdomen and pelvis. Delayed imaging through the kidneys was also performed. FINDINGS: Borderline splenomegaly. No mesenteric, aortocaval or iliac chain lymphadenopathy. Bilateral femoral lymph nodes, largest aggregate on the right 1 x 3 cm. No inguinal hernia. Intact abdominal wall. Diffuse hepatic fatty filtration. Unremarkable gallbladder, biliary tree, pancreas, and adrenal glands. Kidneys, collecting systems, and bladder: Normal. Small prostate volume IMPRESSION: Bilateral femoral (right greater than left) nonspecific lymph nodes, mild splenomegaly. Given his history, further characterization/restaging with PET may be of assistance. TRANSCRIBED BY: ELECTRONICALLY SIGNED BY: Bill Marcano MD Not Available Evaluation note 02-14-2022 Note Date & Type Note Facility 02-14-2022 Evaluation note Encounter Date Diagnosis Assessment Notes Jan, Bee sting, undetermined intent, initial encounter (ICD-10 - T63.444A) Today we are treating for allergic reaction. Recommend to take medication as prescribed and take OTC Zyrtec. [facility] [facility] [employer] Other Evaluation note Note Date & Type Note Facility Evaluation note Diagnosis Onset Date Abnormal weight loss acute Bilateral headaches acute Diffuse lymphadenopathy acut e Fatty liver disease, nonalcoholic acute Night sweats acute Splenomegaly acute [facility] Work Phone: History general Narrative - Reported Note Date & Type Note Facility History general Narrative - Reported Type Medical History sleep apnea Medical History acid reflux Medical History anxiety Medical History Depression [employer] Other Progress note Note Date & Type Note Facility Progress note Note Date/Time July 26, 2023 8:[address] [place] [address] [place] [address] Cancer Center Note Signed Patient: Anupam Sandy MR#: [id number] : 1990 Acct:[id number] Age/Sex: 32 / M Type: REG AMB Date of Service: 07/26/23 Copies to: Sánchez Dorman DO~ Assessment & Plan A/P (1) Diffuse lymphadenopathy: (2) Splenomegaly: (3) Fatty liver disease, nonalcoholic: (4) Night sweats: (5) Abnormal weight loss: (6) Bilateral headaches: Plan The details are described in the HPI above. The above findings and symptoms are concerning for lymphoproliferative disordersversus infectious process or autoimmune disease. We will need further evaluation with PET CT scan and lymph node biopsy as well as an MRI of the brainwith and without contrast due to the persistent ongoing headache for 2 months. We also need the following labs including peripheral blood flow cytometry, FISH for B-cell lymphoma, CBC with differential CMP, MARY, rheumatoid factor, ROYAL, RPR, HIV, acute and chronic hepatitis panel, Lyme titers IgM and IgG as well as sed rate and CRP. Will have him come back in 2 to 3 weeks with results. Orders: Orders PET tumor init tx strat sb-mt 1 Day R59.1 - Generalized enlarged lymph nodes, Z01.89 - Encounter for other specified special examinations MR head/brain wo/w con 1 Day R59.1 - Generalized enlarged lymph nodes MARY Antinuclear Antibodies 1 Day R59.1 - Generalized enlarged lymph nodes Rheumatoid Factor 1 Day R59.1 - Generalized enlarged lymph nodes Erythrocyte Sedimentation Rate 1 Day R59.1 - Generalized enlarged lymph nodes Immunoglobulin G 1 Day R59.1 - Generalized enlarged lymph nodes Immunoglobulin M, Serum 1 Day R59.1 - Generalized enlarged lymph nodes Hepatitis B Core Antibody 1 Day R59.1 - Generalized enlarged lymph nodes Hepatitis B Surface Antibody 1 Day R59.1 - Generalized enlarged lymph nodes Hep C Ab wRfx to Qnt PCR 1 Day R59.1 - Generalized enlarged lymph nodes Complete Blood Count Auto Diff 1 Day R59.1 - Generalized enlarged lymph nodes Comprehensive Metabolic Panel 1 Day R59.1 - Generalized enlarged lymph nodes Flowcytometry Neogenomic 1 Day R59.1 - Generalized enlarged lymph nodes Fish Not Bladder Neogenomic 1 Day R59.1 - Generalized enlarged lymph nodes Angiotensin Converting Enzyme 1 Day R59.1 - Generalized enlarged lymph nodes High Sensitive CRP 1 Day R59.1 - Generalized enlarged lymph nodes RPR w/rfx to Quant & TP Abs 1 Day R59.1 - Generalized enlarged lymph nodes Lyme, Total Ab with Reflex 1 Day R59.1 - Generalized enlarged lymph nodes Hepatitis B Surface Antigen 1 Day R59.1 - Generalized enlarged lymph nodes HIV 1/O/2 Antigen/Antibody 1 Day R59.1 - Generalized enlarged lymph nodes Hepatitis Acute Panel 1 Day R59.1 - Generalized enlarged lymph nodes Patient Instructions: PET,LN biopsy is scheduled at [place] flow,FISH,HIV,chronic and acutehep panel, MARY,RF,sed rate,CRP,RPR,lyme titer,IgG,IgM MRI brain return 3 weeks CHEMO PLAN No Active Chemotherapy History of Present Illness HPI Eveline is a 32-year-old nice gentleman with chief prior heart or medical problemswho was referred by his primary care physician to medical oncology and hematology to be evaluated for bilateral femoral lymphadenopathy with bilateral cervical jugular lymphadenopathy and mild splenomegaly of unclear etiology with night sweats and persistent intermittent headache for 2 months and bodyaches as well as fatigue. He also lost 50 pounds from November 2022 at June 2023 but he is using intentionally medication to lose weight. He initially saw his a primary care physician for questionable or possible hernia inside of the right thigh or groin lesion which he had stated that started few days only prior to that visit on 07/03/2023. He underwent labs which revealed WBC of 10.7 hemoglobin 13.6 platelet count of 240,000 with normal WBC differential and we observed lymphocyte count of 2087 and absolute neutrophil count of 7500 He underwent an ultrasound of the femoral area which ruled out hernia in the groin however it revealed bilateral femoral right greater than left but they arelikely nonspecific lymphs node. Therefore CAT scan of neck soft tissue, chest and abdomen and pelvis were done on 07/21/2023 which revealed bilateral suprahyoidjugular chain lymph nodes with diffuse hepatic fatty infiltration and mild borderline splenomegaly. CAT scan confirmed bilateral femoral nonspecific lymphnode right greater than left and chest CT was negative for any enlarged lymphadenopathy in the thoracic area. PET scan was recommended therefore further identified spread and also diagnosis of the etiology of these enlarged lymph nodes. 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 Heto tobacco since he was age 16 but he does not smoke tobacco or drink alcohol oruse any other recreational drugs. He denied any IV drug abuse of any kind. He is and he stated he is strictly practice sex with his only. He denies any extramarital relationship. He denied any history of malignancy or HIV or hepatitis before and denied any tick bite as well. Family history positive for pancreatic cancer in his grandmother. Review of system he stated that he has been having headache on and off for 2 months with mild dizziness without any double vision or blurry vision and deniedany focal neurological deficit. He denies any chest pain or shortness of breathor abdominal pain however he has some discomfort in the neck area where the jugular lymph nodes are and also some discomfort in the bilateral femoral lymph nodes. He also complains of bodyaches and fatigue and night sweats with rigors and decreased appetite over the last 2 months. Rest of the review of systems otherwise negative. Intake Vitals/Pain Assessment 07/26/23 08:55 Height 5 ft 11 in Weight 106.594 kg BMI 32.8 Body Fat % 41.86 BP 142/92 H Blood Pressure Location Rt brachial Position Sitting Temp 97.9 F Temp Source Temporal Pulse 72 Pulse Source NIBP Respiration 20 Pulse Oximetry (%) 98 Oxygen Delivery Method room air Are you having pain? Yes Pain Location generalized Pain scale (0-10) 3 Intake Visit Reasons: New Pt - Lymphadenopathy Allergies No Known Allergies Allergy (Verified 07/26/23 08:59) - Last Reconciled 07/26/23 by Eveline Justice acetaminophen (Tylenol) 325 mg PO Q6HR PRN Gastrointestinal Is the patient taking opioids for pain control?: No Bowel Protocol for Opioids Given: No Bowel Pattern: Regular Bowel Movement Aid(s): None Falls Fall Precaution Measures Taken: Patient in chair Nurse's Note: Patient is referred by Dr Sánchez Dorman for lymphadenopathy of right groin and neck. Patient reports extreme fatigue. Patient also reports night sweats and headaches. Patient also reports body aches. States that he has a biopsy scheduled for next Monday at [place]. [facility] History Attestation statement: The following information was validated with the patient. Medical History Medical History (Updated 07/26/23 @ 10:07 by Tatyana Waters MD) Bilateral headaches Abnormal weight loss Night sweats Fatty liver disease, nonalcoholic Splenomegaly Diffuse lymphadenopathy Primary hypertension Vitamin D deficiency Major depressive disorder in partial remission Insulin resistance Generalized anxiety disorder Arthritis of right hand Arthritis of finger of left hand Hypertension Surgical History Surgical History (Updated 07/26/23 @ 09:03 by Eveline Justice) History of tonsillectomy Family History Family History (Updated 07/26/23 @ 09:06 by Eveline Justice) Mother Multiple sclerosis Daughter Autoimmune disorder Grandparent Cancer maternal Social History Social History (Updated 07/26/23 @ 09:07 by Eveline Justice) Do you use any of these nicotine containing products: smokeless tobacco Smokeless tobacco user: chewing tobacco Within the past year, how often did you have a drink containing alcohol: monthly or less In the past 12 months, have you used illegal drugs or prescription drugs for non-medical reasons?: No Review of Systems ROS Details: All systems reviewed & no additional complaints except as documented General: Patient admitted to having fevers, chills, rigors, night sweats for 2 months weight loss or loss of appetite since November 2022. Head: Patient denied any headaches or vision changes Thoracic: Patient denied any shortness of breath or cough or hemoptysis Cardiovascular patient denies any chest pain or leg edema GI: Patient denies any nausea vomiting rectal bleed diarrhea : Patient denied gross hematuria. Hematology: Patient denied any bleeding from any source. No easy bruising. Lymphatic: Positive for enlarged lymph node in the neck and bilateral femoral region and the inside of the upper proximal thighs. Skin: Normal skin exam no rashes or suspicious lesions. Neurological patient denies any headache or dizziness or focal weakness or sensory changes. Physical Exam EXAM HEENT normocephalic atraumatic pupils are equal and round Neck supple without thyromegaly but with mild shotty submandibular and jugular and lower cervical lymphadenopathy. Chest clear to auscultation bilaterally without wheezing crackles or rhonchi Heart regular rate and rhythm S1-S2 without murmurs gallop or rub Abdomen soft nontender not distended without hepatosplenomegaly or masses clinically Extremities no edema of the lower extremities Skin without any suspicious rashes Lymphatic system: Positive for shotty lymph node in the neck area as stated above in the submandibular and jugular regions and also for small subcentimeter soft lymph node in the internal proximal thigh mainly in the right now much appreciated in the left side. Neurological exam patient is cooperative alert and oriented x3 no focal deficits. Results - [facility] LAB RESULTS No Data to Display Dictated By: Tatyana Waters MD DD/ [id number] Signed By: <Electronically signed by Tatyana Waters MD> 07/26/23 1008 [facility] Work Phone: Summary Purpose Family History No Family History Records Found Relationship Condition Age at Onset Recorded Date/T celia Not Specified Multiple sclerosis Unknown daughter Autoimmune disorder Unknown grandparent Malignant neoplasm Unknown Advance Directives No Advanced Directives Records Found Advance Directive Response Recorded Date/ Time Advance Directives No July 21, 2023 3:34pm Chief Complaint and Reason for Visit Chief Complaint Lymphadenopathy New Pt - Lymphadenopathy Reason for Visit Abnormal weight loss Bilateral headaches Diffuse lymphadenopathy Fatty liver disease, nonalcoholic Night sweats Splenomegaly Additional Source Comments (unrecognized sect ion and content) No Status Records FoundNo Status Records FoundNo Status Records Found INFORMATION SOURCE (unrecogn ized section and content) DATE CREATED AUTHOR [facility]12/2021 [facility] DATE CREATED AUTHOR AUTHOR'S ORGANIZ ATION [facility]/25/2023 [facility] DATE CREATED AUTHOR AUTHOR'S ORGANIZ ATION 08/01/2023 [facility] REASON FOR VISIT (unrecogniz ed section and content) BEE STING TO LEFTFOREARM Care Teams (unrecognized sec tion and content) Team Status: Active Member Role Status Dates Sánchez Dorman DO Primary Care Provider Active Team Status: Active Member Role Status Dates Sánchez Dorman DO Primary Care Provider Active Start: July 26, 2023 Tatyana Waters MD Attending Provider Active Start: July 26, 2023 Team Status: Inactive Member Role Status Dates Tatyana Waters MD Attending Provider Active Start: July 26, 2023 End: July 26, 2023 Sánchez Droman DO Primary Care Provi frank, Referring Provider Active Start: July 26, 2023 End: July 26, 2023 Goals (unrecognized section and content) Goals may be documented in a n alternate section FOR RECORDS PERTAINING TO PATIENTS WHO ARE OR HAVE BEEN ENROLLED IN A CHEMICAL DEPENDENCY/SUBSTANCEABUSE PROGRAM, SOME INFORMATION MAY BE OMITTED. This clinical summary was aggregated from multiple sources. Caution should be exercised in using it in the provision of clinical care. This summary normalizes information from multiple sources, and as a consequence, information in this document may materially change the coding, format and clinical context of patient data. In addition, data may be omitted in some cases. CLINICAL DECISIONS SHOULD BE BASED ON THE PRIMARY CLINICAL RECORDS. [employer] [facility]. provides no warranty or guarantee of the accuracy or completeness of information in this document.
[2023-08-01] MEDS: LACTATED RINGER'S SOLUTION 1,000 ML 50 ML IV ×2 (07:46→10:38)
[2023-08-01] MEDS: LIDOCAINE HCL 1%-EPINEPHRINE 1:100,000 10 ML MDV INJ (08:55)
--- NOTE | 2023-08-01 10:03 | W.PM.PROCNOT ---
Date of procedure: 08/01/23 Pre-op diagnosis: lymphadenopathy, night sweats Post-op diagnosis: same as pre-op Procedure: Excision of right inguinal lymph node Procedure Details The patient was taken to Operating Room, identified as the correct patient and the procedure verified. A Time Out was held and the above information confirmed. The patient was placed in supine position and anesthesia was induced per anesthesia team, along with placement of EPC cuffs. The right groin was prepped and draped in a sterile fashion. The area of planned incision was injected with 1% lidocaine with epi, approximately 8ml was used. A 15 blade was used to make a vertical style incision in the right medial groin along the lines of Eliz. It was approximately 5 cm in length. Use of careful sharp and blunt dissection was carried out to disect down through the deep tissues until an enlarged inguinal lymph node was encountered. The lesion was removed in its entirety and sent to pathology fresh for immediate analysis. The pathologist was on site and right outside of the OR. The excisional site was checked for hemostasis. The skin edges and incision site deep tissues were cauterized to ensure proper hemostasis. The skin incision was closed in a layered fashion. 3-0 Vircyl deep fascial sutures followed by 3-0 vicryl dermal sutures followed by a running 4-0 monocryl subcuticular running stitch. The area was cleansed and skin glue and steri strips were then applied. Instrument, sponge, and needle counts were correct at the conclusion of the case. Patient tolerated the procedure well without any complications.? Patient was transferred to PACU in stable condition. Anesthesia: GETA and MAC Surgeon: Johnnie Lara Estimated blood loss (mL): 5 Pathology: other (right inguinal lymph node ) Condition: stable Disposition: PACU
== END 2023-08-01 11:17 | disposition home or self-care (01) ==
PROVIDERS: PCP Family Medicine; Visit Provider Surgery
PROC: (CPT 1250; principal; 2023-08-01 08:40)
DX: R59.0 Localized enlarged lymph nodes (principal); R61 Generalized hyperhidrosis; G47.33 Obstructive sleep apnea (adult) (pediatric)
CPT/HCPCS: 38531; 88305; 88333; 88341; 88342; J1094; J2704